=== PATIENT | female | born 1980 | race Caucasian/White ===

== ENCOUNTER 2016-09-02 10:31 | Day surgery (SDC) | payer OTHER ==
[2016-09-02] VITALS (7 sets, daily range): BP systolic 98–108; BP diastolic 58–67; PULSE 51–57; TEMP 97.8–98.2
[~2016-09-02] VITALS: Ht 167.6 cm; Wt 79.3 kg
[2016-09-02] MEDS ORDERED: NORCO 325 MG-51 TAB PO (11:20)
[2016-09-02] MEDS ORDERED: ZANTAC 150MG T150 MG PO (11:21)
[2016-09-02] MEDS ORDERED: ZYRTEC ALLERGY10 MG PO (11:22)
[2016-09-02] MEDS ORDERED: ALDACTONE 25MG25 M1 PO (11:22)
[2016-09-02] MEDS ORDERED: ZOLOFT 100MG100 MG PO (11:23)
[2016-09-02] MEDS ORDERED: FLONASEALLERGY NS (11:23)
[2016-09-02] MEDS ORDERED: MELATONIN3 M1 (11:24)
[2016-09-02] MEDS ORDERED: SINGULAIR 110 MG/TAB PO (11:24)
[2016-09-02] MEDS ORDERED: ZOFRAN ODT4 MG PO (14:19)
[2016-09-02] MEDS ORDERED: PERCOCET 325 MG1 TA2 PO (14:19)
== END 2016-09-02 17:20 | disposition home or self-care (01) ==
LOC: SDCO 10:31
DX: K80.10 Calculus of gallbladder with chronic cholecystitis without obstruction (principal); K42.9 Umbilical hernia without obstruction or gangrene; K21.9 Gastro-esophageal reflux disease without esophagitis
CPT/HCPCS: J0694; J1100; J1885; J2250; J2270; J2405; J2704; J2710; J3010; J7120; Q9967

== ENCOUNTER → 2016-09-23 | Outpatient (CLI) | payer OTHER ==
[~2016-09-23] MED LIST: ALDACTONE 25MG25 M1 PO; FLONASEALLERGY NS; MELATONIN3 M1; NORCO 325 MG-51 TAB PO; PERCOCET 325 MG1 TA2 PO; SINGULAIR 110 MG/TAB PO; ZANTAC 150MG T150 MG PO; ZOFRAN ODT4 MG PO; ZOLOFT 100MG100 MG PO; ZYRTEC ALLERGY10 MG PO
== END ==
LOC: COL.RAD 09:21
DX: R79.89 Other specified abnormal findings of blood chemistry (principal)
CPT/HCPCS: A9537

== ENCOUNTER 2017-09-04 01:11 | Emergency (ER) | payer OTHER ==
[~2017-09-04] VITALS: Ht 167.6 cm; Wt 72.7 kg
[2017-09-04 01:12] VITALS: TEMP 98
[2017-09-04 01:40] LABS: BASO % 0.4 % (0.0-2.0); EOS # 0.1 (0.0-0.7); EOS % 1.5 % (0-4.0); GRAN % 68.1 % (42.2-75.2); HEMATOCRIT 38.1 % (37.0-47.0); HEMOGLOBIN 13.1 g/dl (12.5-16.0); LYMPH # 1.7 (1.2-3.4); LYMPH % 22.6 % (20.0-51.0); MEAN CELL VOLUME 87 fl (80.0-100.0); MEAN CORPUSCULAR HEMOGLOBIN 30 pg (27.0-31.0); MEAN CORPUSCULAR HGB CONC 34 g/dl (33.0-37.0); MONO # 0.5 (0.1-0.6); PLATELET COUNT 216 K/mm3 (130-400); REDCELL DISTRIBUTION WIDTH-CV 12.8 % (11.5-14.5)
[2017-09-04 01:56] LABS: ALBUMIN 4.5 gm/dL (3.5-5.0); BILIRUBIN,TOTAL 0.3 mg/dL (0.0-1.0); CREATININE, serum 0.66 mg/dL (0.52-1.25); POTASSIUM 3.3 mmol/L (3.4-5.0); TOTAL PROTEIN 7.4 gm/dL (6.4-8.2)
[2017-09-04 04:09] VITALS: BP 117/81; PULSE 64
== END 2017-09-04 04:11 | disposition home or self-care (01) ==
LOC: COL.ER 01:11
PROVIDERS: Emergency Medicine
DX: F10.129 Alcohol abuse with intoxication, unspecified (principal); F32.9 Major depressive disorder, single episode, unspecified; Y90.6 Blood alcohol level of 120-199 mg/100 ml; Z90.49 Acquired absence of other specified parts of digestive tract; Z79.51 Long term (current) use of inhaled steroids
CPT/HCPCS: J2405; J7030